=== PATIENT | male | born 1980 | race Caucasian/White ===

== ENCOUNTER 2017-02-11 21:14 | Emergency (ER) | payer BC ==
[2017-02-11 21:23] VITALS: BP 166/109; BMI 42.5
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
== END 2017-02-11 23:23 | disposition home or self-care (01) ==
LOC: ER 21:14
DX: S20.20XA Contusion of thorax, unspecified, initial encounter (principal); X58.XXXA Exposure to other specified factors, initial encounter; Y92.9 Unspecified place or not applicable
CPT/HCPCS: 71250; 99282